=== PATIENT | male | born 1990 ===

== ENCOUNTER 2019-07-04 09:46 | Emergency (ER) | payer OTHER ==
[~2019-07-04] VITALS: Ht 180.3 cm; Wt 118.8 kg
[2019-07-04 10:13] VITALS: Ht 180.3 cm; Wt 118.8 kg
[2019-07-04 10:52] VITALS: BP 127/74
== END 2019-07-04 10:52 | disposition home or self-care (01) ==
LOC: ED 09:46
DX: S16.1XXA Strain of muscle, fascia and tendon at neck level, initial encounter (principal); S29.012A Strain of muscle and tendon of back wall of thorax, initial encounter; M25.512 Pain in left shoulder; R03.0 Elevated blood-pressure reading, without diagnosis of hypertension; V43.52XA Car driver injured in collision with other type car in traffic accident, initial encounter; Y93.I9 Activity, other involving external motion; Y92.488 Other paved roadways as the place of occurrence of the external cause; Y99.8 Other external cause status